=== PATIENT | male | born 1975 | race Caucasian/White ===

== ENCOUNTER 2016-08-29 07:29 | Emergency (ER) ==
[2016-08-29 07:54] LABS: MANUAL DIFF NEEDED? NO
[2016-08-29 07:59] LABS: BASO% 0.6 % (0.0-0.8); EOS# 0.18 X1000 (0.0-0.7); EOS% 2.1 % (0.0-10.0); HEMATOCRIT 40.8 % (42.0-52.0); HEMOGLOBIN 14.4 g/dL (14.0-18.0); IMM GRAN# 0.02 X1000 (0.0-0.04); IMM GRAN% 0.2 % (0.0-0.5); LYMPH% 18.7 % (20.5-51.1); MCH 29.6 PG (27-31); MCHC 35.3 g/dL (33-37); MONO# 0.69 X1000 (0.11-0.59); MONO% 8.1 % (1.7-9.3); MPV 9.2 FL (7.4-10.4); NEUT% 70.3 % (42.2-75.2); PLT 290 X1000 (130-400); RBC 4.86 XMIL (4.7-6.1)
[2016-08-29 08:11] LABS: INR 0.96; PROTIME 10.2 Seconds (9.2-11.7); PTT 32.1 Seconds (22.0-36.0)
[2016-08-29 08:13] LABS: AGAP 15; ALBUMIN 4.1 g/dL (3.5-5.0); ALKALINE PHOSPHATASE 73 U/L (32-122); BUN 12 mg/dL (8-22); CALCIUM 10.1 mg/dL (8.8-10.2); CHLORIDE 99 mmol/L (98-107); COSMO 277; GOT 15 U/L (10-34); GPT 28 U/L (10-44); POTASSIUM 4.3 mmol/L (3.5-5.1); SODIUM 139 mmol/L (136-145); TCO2 25 mmol/L (25-35); TOTAL BILIRUBIN 0.28 mg/dL (0.20-1.00); TOTAL PROTEIN 6.7 g/dL (6.3-8.3)
--- NOTE | 2016-08-29 10:12 | PROVIDER DOCUMENTATION ---
HPI-General Adult - General Chief Complaint: Post Op Complaint Stated Complaint: POST OP COMPLAINT Time Seen by Provider: 08/29/16 07:39 Source: patient Allergies/Adverse Reactions: Patient Allergies Allergy/AdvReac Type Severity Reaction Status Date / Time clarithromycin [From Biaxin] Allergy Unknown Verified 08/29/16 10:44 Sulfa (Sulfonamide AdvReac RASH Verified 08/29/16 10:44 Antibiotics) Home Medications: Home Medication List Medication Instructions Recorded Confirmed Last Taken Type LISINOpril [Prinivil] 20 mg PO DAILY #30 tablet 12/15/15 08/29/16 08/29/16 Rx Carisoprodol [Soma] 350 mg PO DAILY 08/29/16 08/29/16 08/29/16 History Omeprazole [Prilosec] 20 mg PO DAILY 08/29/16 08/29/16 08/29/16 History ROSUVAstatin [Crestor] 20 mg PO DAILY 08/29/16 08/29/16 08/29/16 History Sertraline [Zoloft] 25 mg PO DAILY 08/29/16 08/29/16 08/29/16 History - History of Present Illness -Gen Adult Nature of Presenting Problems: Back surgery 12 days ago in [facility] due to numbness reports was doing good for a few days now comes in with cc of lower back pain reports pain radiating down right leg x3 days. Reports pain now is worse than before surgery. Ran out of oxycontine. Still has naproxine. Next sunday is appt follow up with surgeon. Location of Pain/Injury: reports: back Pain Radiation: reports: legs (upper) Quality of Pain: reports: aching Severity: reports: severe Onset/Duration: reports: 3 days ago Timing: reports: getting worse Similar Symptoms Previously?: Yes Recently seen or treated by another doctor?: Yes Review of Systems - Adult - REVIEW OF SYSTEMS - ADULT Constitutional: denies: chills, fever, fatique Eyes: reports: no symptoms reported Ears, Nose, Mouth & Throat: denies: ear pain, sinus problem, throat pain Cardiovascular: reports: no symptoms reported Respiratory: reports: no symptoms reported Gastrointestinal: reports: no symptoms reported Genitourinary: reports: no symptoms reported Musculoskeletal: reports: see HPI, back pain. denies: joint pain, joint swelling, neck pain Integumentary: reports: no symptoms reported Neurological: reports: no symptoms reported Psychiatric: reports: no symptoms reported Endocrine: reports: no symptoms reported Hematologic/Lymphatic: reports: no symptoms reported Allergic/Immunologic: reports: no symptoms reported All Other Systems: Reviewed and Negative Past History - Adult - PAST MEDICAL HISTORY-ADULT Review of Records: reports: Nursing Assessment Review, Medications Reviewed Major Childhood Illnesses: reports: denies history Cardiovascular: reports: denies history Respiratory: reports: denies history Gastrointestinal: reports: denies history Obstetrical/Gynecological: reports: denies history Genitourinary: reports: denies history Musculoskeletal: reports: chronic pain, intervertebral disc disease, neck/back injury Neurological: reports: denies history Endocrine/Immune: reports: denies history Other Conditions: reports: denies history - PRIOR SURGERIES/PROCEDURES Surgical/Procedure History: reports: back/neck - IMMUNIZATION STATUS Childhood Immunizations: See Nurse Assessment Flu Vaccine: See Nurse Assessment - FAMILY HISTORY Family History: reviewed, not pertinent - SOCIAL HISTORY Smoking: chew Substance Use: none/never Physical Exam-General - PHYSICAL EXAM-ADULT Initial Vital Signs Reviewed: Yes - CONSTITUTIONAL General Appearance: appears well, alert, mild distress - EYES Eyes: PERRL/EOMI - HEAD, EARS, NOSE, MOUTH & THROAT HENMT: moist mucous membranes, normal ENT inspection, TMs normal, pharynx normal - NECK Neck: non-tender, full range of motion, supple, normal inspection - RESPIRATORY Respiratory: chest non-tender, lungs clear, normal breath sounds, no pleuratic chest pain, no respiratory distress, no accessory muscle use - CARDIOVASCULAR Cardiovascular: regular rate, rhythm - GASTROINTESTINAL (ABDOMEN) Abdominal Exam: normal bowel sounds, non tender, soft, no organomegaly, no pulsatile mass - MUSCULOSKELETAL Back Exam: normal inspection, no CVA tenderness, no vertebral tenderness, other (well healed surgical scar) Extremity: normal range of motion, non-tender - SKIN Integumentary: normal color, normal turgor, warm/dry - NEUROLOGIC Neurologic: 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 II-XII nml as tested, grossly normal - PSYCHIATRIC Psych/Mental Status: normal mood/affect, normal thought content, normal thought process, oriented x 3 Progress - PLAN OF CARE/RESULTS Progress/Plan/Lab Results: Orders Category Date Time Status CBC WITH ELECTRONIC DIFF [HEME] Stat Lab 08/29/16 07:40 Completed COMPREHENSIVE METABOLIC PANEL [CHEM] Stat Lab 08/29/16 07:40 Completed D-DIMER [CHEM] Stat Lab 08/29/16 07:40 Completed PROTIME WITH INR [COAG] Stat Lab 08/29/16 07:40 Completed PTT [COAG] Stat Lab 08/29/16 07:40 Completed Venous U/S Bilateral Legs [CV] Stat Ther 08/29/16 07:57 Completed Vital Signs - 24 hr 08/29/16 07:31 Temperature 98.1 F Pulse Rate 104 H Respiratory 18 Rate Blood Pressure 151/114 O2 Sat by Pulse 98 Oximetry Laboratory Tests 08/29/16 08/29/16 08/29/16 07:40 07:40 07:40 WBC 8.57 RBC 4.86 Hgb 14.4 Hct 40.8 L MCV 84.0 MCH 29.6 MCHC 35.3 RDW Std Deviation 12.1 Plt Count 290 MPV 9.2 Immature Gran % (Auto) 0.2 Neut % (Auto) 70.3 Lymph % (Auto) 18.7 L Hardin % (Auto) 8.1 Eos % (Auto) 2.1 Baso % (Auto) 0.6 Immature Gran # (Auto) 0.02 Neut # (Auto) 6.03 Lymph # (Auto) 1.60 Hardin # (Auto) 0.69 H Eos # (Auto) 0.18 Baso # (Auto) 0.05 PT INR PTT (Actin FS) D-Dimer 0.64 H Sodium 139 Potassium 4.3 Chloride 99 Carbon Dioxide 25 Anion Gap 15 BUN 12 Creatinine 0.9 Estimated GFR/1.73 m2 > 60 BUN/Creatinine Ratio 13 Glucose 100 Calculated Osmolality 277 Calcium 10.1 Total Bilirubin 0.28 AST 15 ALT 28 Alkaline Phosphatase 73 Total Protein 6.7 Albumin 4.1 Globulin 2.6 Albumin/Globulin Ratio 1.6 08/29/16 07:40 WBC RBC Hgb Hct MCV MCH MCHC RDW Std Deviation Plt Count MPV Immature Gran % (Auto) Neut % (Auto) Lymph % (Auto) Hardin % (Auto) Eos % (Auto) Baso % (Auto) Immature Gran # (Auto) Neut # (Auto) Lymph # (Auto) Hardin # (Auto) Eos # (Auto) Baso # (Auto) PT 10.2 INR 0.96 PTT (Actin FS) 32.1 D-Dimer Sodium Potassium Chloride Carbon Dioxide Anion Gap BUN Creatinine Estimated GFR/1.73 m2 BUN/Creatinine Ratio Glucose Calculated Osmolality Calcium Total Bilirubin AST ALT Alkaline Phosphatase Total Protein Albumin Globulin Albumin/Globulin Ratio 1015 at [facility] - CT/MRI 1 CT Study: Lumbar Spine Impression: Abnormal (no abscess;no fx;degenerative changes) Departure - Departure Time of Disposition Order: 12:45 DIAGNOSIS: Post-op pain, Leg pain, right Disposition: HOME 01 Certified Medical Emergency: Emergent Condition: Stable Additional Instructions: Follow up with your Spine doctor ED Follow Up Instructions: You have been treated by a care provider in the Emergency Department. These instructions are being provided to you so you can have an understanding of how to care for yourself upon discharge. Upon discharge from the Emergency Department, you are responsible for making arrangements for follow-up care by a physician of your choice. Take all prescribed medications as directed. Return to the Emergency Department immediately for any new or worsening symptoms. You may call the Physician Referral phone number at [phone] to obtain a list of Physicians who are taking new patients. Referrals: [Primary Care Provider] - Attestation - Scribe Verification/Attestation Scribe:: Rip Bates Acting as Scribe for:: Heather Hawkins Scribe documention review:: This chart was documented by a scribe and accurately reflects the service the provider performed and the decisions made by the provider. Physician Attestation - Physician Attestation I, the provider, attest to the following statement:: Heather Hawkins Physician documentation Attestation:: This documentation recorded by the scribe accurately reflects the service I personally performed and the decisions made by me.
[2016-08-29] MEDS ORDERED: NORCO-10 PO ONE (11:15)
--- NOTE | 2016-08-29 12:56 | Diag Imaging Result Document ---
PROCEDURE NAME: LUMBAR SPINE W/CONTRAST - 08/29/2016 CT LUMBAR SPINE WITHOUT CONTRAST: FINDINGS: There is good alignment to the lumbar spine. No compressed vertebra. No other fracture. There are vacuum disks at L4-5 and L5-S1. There are bulging disks at these levels resulting in at least moderate spinal stenosis at L4-5 and mild spinal stenosis at L5-S1. No enhancing abnormality on the post contrasted images. There are postsurgical changes posterior to the L3-5 vertebra. There is a single tiny air bubble at the surgical site adjacent to the spinous process of the L4 vertebra. IMPRESSION: 1. No fracture. 2. Degenerative changes with spinal stenosis. 3. Postsurgical changes in the lower lumbar spine, but no abscess. A preliminary report was given at 12:38 p.m. MTDD
[2016-08-29 13:54] VITALS: BP 148/82
--- NOTE | 2016-08-29 17:33 | Extremity Venous Study ---
PROCEDURE NAME: Venous U/S Bilateral Legs - 08/29/2016 REFERRING PHYSICIAN: Dr. Hawkins. INTERPRETING PHYSICIAN: Dr. Marie. TECH: ControlScan. INDICATION: The patient has pain and edema in the legs. The patient has had recent surgery bilateral. Lower extremity venous images accomplished. Common femoral, superficial femoral, deep femoral, popliteal, posterior tibial, peroneal, greater saphenous veins are imaged. Doppler is used to evaluate the veins for phasicity, respiratory excursion, distal augmentation. All veins are compressible. No intraluminal clot is seen. INTERPRETATION: No evidence of deep or superficial venous thrombosis in either lower extremity in the veins identified.
== END 2016-08-29 13:54 | disposition home or self-care (01) ==
LOC: ED 07:29
DX: G89.18 Other acute postprocedural pain (principal); M79.651 Pain in right thigh; M47.9 Spondylosis, unspecified; M48.06 Spinal stenosis, lumbar region; M54.5 Low back pain; G89.29 Other chronic pain; Z79.899 Other long term (current) drug therapy
CPT/HCPCS: 72132; 80053; 85025; 85379; 85610; 85730; 93970; Q9967